=== PATIENT | female | born 1990 | race Caucasian/White ===

== ENCOUNTER → 2022-06-22 | Day surgery (SDC) | payer OTHER ==
[~2022-06-22] VITALS: Ht 165.1 cm; Wt 81.6 kg
[~2022-06-22] MED LIST: ADDERALL 15 MG15 MG PO; AMOXICILLIN500 MG PO; KEPPRA1000 MG PO; LATUDA40 MG PO; PROZAC20 MG PO; VIBRAMYCIN100 MG PO; VIMPAT200 MG PO
[2022-06-22 07:41] LABS: HCG (URINE) SCREEN POSITIVE (NEGATIVE)
== END | disposition home or self-care (01) ==
LOC: FAS 07:23
PROVIDERS: Oral & Maxillofacial Surgery
DX: K02.63 Dental caries on smooth surface penetrating into pulp (principal); K04.7 Periapical abscess without sinus; R56.9 Unspecified convulsions; Z53.9 Procedure and treatment not carried out, unspecified reason
CPT/HCPCS: 36415; 84702; 84703; J1100; J7120